=== PATIENT | male | born 1990 | race Two or more races ===

== ENCOUNTER 2023-06-12 17:43 | Inpatient (IN) | payer OTHER ==
[~2023-06-12] VITALS: Ht 175.3 cm; Wt 83.3 kg
[2023-06-12 18:34] LABS: BASOPHILS % (AUTO) 0.5 % (0.0-2.0); EOSINOPHILS % (AUTO) 1.8 % (1.0-6.0); HEMATOCRIT 47.1 % (41-53); HEMOGLOBIN 16.1 g/dL (13.5-17.5); LYMPHOCYTES % (AUTO) 34.6 % (22.0-44.0); MEAN CORPUSCULAR HEMOGLOBIN 30.2 pg (26.0-34.0); MEAN CORPUSCULAR HGB CONC 34.2 G/dL (31.0-37.0); MEAN CORPUSCULAR VOLUME 88 fL (80-100); MONOCYTES % (AUTO) 8.8 % (2.0-9.0); NEUTROPHILS # (AUTO) 6.2 K/uL (1.8-7.7); NEUTROPHILS % (AUTO) 54.3 % (40.0-70.0); PLATELET COUNT (AUTO) 261 K/uL (150-450); RED BLOOD CELL COUNT(AUTO) 5.33 MIL/uL (4.50-5.90); RED CELL DISTRIBUTION WIDTH 13.4 % (11.5-14.5); WHITE BLOOD COUNT (AUTO) 11.5 K/uL (4.5-11.0)
[2023-06-12 18:42] LABS: ANION GAP 9 mmol/L (8-16); CARBON DIOXIDE 27 mmol/L (22-29); CHLORIDE 103 mmol/L (98-107); CREATININE 0.83 mg/dL (0.60-1.30); GLOMERULAR FILTR. RATE CALC > 60 mL/min (>60); GLUCOSE,RANDOM 100 mg/dL (70-110); SODIUM SERUM 139 mmol/L (136-145); UREA NITROGEN, BLOOD 19 mg/dL (7-18)
[2023-06-12 18:48] LABS: ALANINE AMINOTRANSFERASE 29 U/L (12-78); ALBUMIN 4.1 g/dL (3.4-5.0); ALKALINE PHOSPHATASE 120 U/L (46-116); ASPARTATE AMINOTRANSFERASE 18 U/L (15-37); BILIRUBIN,TOTAL 0.4 mg/dL (0.1-1.0); TOTAL PROTEIN, SERUM 8.3 g/dL (6.4-8.2)
[2023-06-12 19:15] LABS: ALCOHOL, BLOOD (SERUM) < 3 mg/dL (0-10)
[2023-06-12 21:00] LABS: COVID AG,FIA SOURCE NASAL SWAB
[2023-06-12] MEDS: RisperiDONE 1 MG TABLET PO ONE (21:00)
[2023-06-12] MEDS: DiphenhydrAMINE HCL 25 MG CAPSULE PO ONE (21:00)
[2023-06-12] MEDS: LORazepam 2 MG TABLET PO ONE (21:00)
[2023-06-12 21:36] LABS: SARS-COV2 (COVID) ANTIGEN,FIA Negative (Negative)
[2023-06-12] MEDS ORDERED: LORazepam 2 MG TABLET PO PRN (23:45)
[2023-06-12] MEDS ORDERED: ZOLPIDEM TARTRATE 10 MG TABLET PO PRN (23:45)
[2023-06-12] MEDS ORDERED: QUEtiapine FUMARATE 100 MG TABLET PO PRN (23:45)
[2023-06-13 02:59] VITALS: BP 112/81; PULSE 66; RESP 18; TEMP 96.9; O2SAT 98
[2023-06-13] MEDS ORDERED: BACITRACIN 28 GM OINTMENT TP PRN (05:45)
[2023-06-13] MEDS ORDERED: MAG HYDROX/ALUMINUM HYD/SIMETH ES 30 ML SUSPENSION UDCUP PO PRN ×2 (05:45→10:15)
[2023-06-13] MEDS ORDERED: IBUPROFEN 600 MG TABLET PO PRN (05:45)
[2023-06-13] MEDS ORDERED: BENZOCAINE/MENTHOL LOZENGE PO PRN (05:45)
[2023-06-13] MEDS ORDERED: MAGNESIUM HYDROXIDE SUSPENSION 30 ML UDCUP PO PRN ×2 (05:45→10:15)
[2023-06-13] MEDS ORDERED: LOPERAMIDE HCL 2 MG CAPSULE PO PRN ×2 (05:45→10:15)
[2023-06-13] MEDS ORDERED: DOCUSATE SODIUM 100 MG CAPSULE PO PRN (05:45)
[2023-06-13] MEDS ORDERED: ONDANSETRON HCL 4 MG TABLET PO PRN (05:45)
[2023-06-13] MEDS ORDERED: CloNIDine HCL 0.1 MG TABLET PO PRN (05:45)
[2023-06-13] MEDS ORDERED: ALBUTEROL SULFATE HFA 90 MCG/PUFF 8 GM INHALER IH PRN (05:45)
[2023-06-13] MEDS ORDERED: ACETAMINOPHEN 325 MG TABLET PO PRN ×2 (05:45→10:15)
[2023-06-13] MEDS ORDERED: OMEPRAZOLE 20 MG CAPSULE PO PRN (05:45)
[2023-06-13] MEDS ORDERED: PETROLATUM,WHITE 28 GM JELLY TP PRN (05:45)
[2023-06-13] MEDS ORDERED: PROMETHAZINE HCL 25 MG TABLET PO PRN (10:15)
[2023-06-13] MEDS ORDERED: OLANZapine 5 MG RAPDIS TABLET PO PRN (10:15)
[2023-06-13] MEDS ORDERED: GuaiFENesin/D-METHORPHAN [SUGAR-FREE] 200-20MG/10 ML SYRUP UDCUP PO PRN (10:15)
[2023-06-13] MEDS ORDERED: HydrOXYzine PAMOATE 50 MG CAPSULE PO PRN (10:15)
[2023-06-13] MEDS ORDERED: TUBERCULIN, PURIFIED PROTEIN DERIVATIVE 5 TU/0.1 ML SYRINGE ID ONE (10:15)
[2023-06-13 11:01] VITALS: BP 119/80; PULSE 89; RESP 18; TEMP 97.5; O2SAT 98
[2023-06-13] MEDS: THIAMINE 100 MG TABLET PO SCH (18:29)
[2023-06-13] MEDS: MELATONIN 5 MG TABLET PO SCH (20:53)
[2023-06-13] MEDS: OLANZapine 5 MG RAPDIS TABLET PO SCH (20:54)
[2023-06-13] MEDS: DIVALPROEX SODIUM 500 MG ER TABLET PO SCH (20:54)
[2023-06-13 21:55] VITALS: BP 117/77; PULSE 76; RESP 18; TEMP 97.9; O2SAT 98
[2023-06-14 08:51] VITALS: BP 123/79; PULSE 77; RESP 18; TEMP 96.8; O2SAT 99
[2023-06-14 09:37] LABS: HEMOGLOBIN A1C 5.5 % (3.8-5.6)
[2023-06-14 09:58] LABS: CHOL/HDL RATIO 2.5 (4.2-7.3); FREE T4 (FREE THYROXINE) 1.24 ng/dL (0.76-1.46); THYROID STIMULATING HORMONE 0.63 uIU/mL (0.36-3.74)
[2023-06-14] MEDS: OMEGA-3/DHA/EPA/FISH OIL 1,000 MG CAPSULE PO SCH (10:02)
[2023-06-14] MEDS: NALTREXONE HCL 50 MG TABLET PO SCH (10:02)
[2023-06-14] MEDS: FOLIC ACID 1 MG TABLET PO SCH (10:02)
[2023-06-14] MEDS: MULTIVITAMINS WITH MINERALS, THERAPEUTIC TABLET PO SCH (10:02)
[2023-06-14] MEDS ORDERED: MELA5TAB40 PO (17:29)
[2023-06-14] MEDS ORDERED: DIVA500T69 PO (17:29)
[2023-06-14] MEDS ORDERED: OLAN5TAB94 PO (17:29)
[2023-06-14] MEDS: OLANZapine 10 MG RAPDIS TABLET PO SCH (20:24)
[2023-06-14 21:10] VITALS: BP 127/80; PULSE 69; RESP 18; TEMP 97.9; O2SAT 96
[2023-06-15 09:18] VITALS: BP 140/89; PULSE 84; RESP 18; TEMP 97; O2SAT 95
== END 2023-06-15 16:20 | disposition home or self-care (01) | DRG 885 ==
LOC: EMS 17:47 → 3EI 06-13 00:33
PROVIDERS: ADMIT Psychiatry & Neurology Psychiatry; ATTEND Psychiatry & Neurology Psychiatry
PROC: GZHZZZZ Group Psychotherapy (ICD-10-PCS; principal; 2023-06-13)
PROC: GZ56ZZZ Individual Psychotherapy, Supportive (ICD-10-PCS; 2023-06-13)
DX: F20.9 Schizophrenia, unspecified (principal); R45.851 Suicidal ideations; F41.9 Anxiety disorder, unspecified; G47.00 Insomnia, unspecified; F32.A Depression, unspecified; Z20.822 Contact with and (suspected) exposure to COVID-19; Z55.9 Problems related to education and literacy, unspecified; Z59.9 Problem related to housing and economic circumstances, unspecified; Z63.9 Problem related to primary support group, unspecified; Z65.3 Problems related to other legal circumstances; Z81.8 Family history of other mental and behavioral disorders; Z87.891 Personal history of nicotine dependence; Z91.199 Patient's noncompliance with other medical treatment and regimen due to unspecified reason; Z91.51 Personal history of suicidal behavior
CPT/HCPCS: 80053; 80061; 83036; 84439; 84443; 85025; 86592; 99285; G0480; Q9967

== ENCOUNTER 2024-04-26 13:53 | Emergency (ER) | payer OTHER ==
[~2024-04-26] VITALS: Ht 172.7 cm; Wt 100.0 kg
[~2024-04-26 13:53] MED LIST: DIVA500T69 PO; MELA5TAB40 PO; OLAN5TAB94 PO
[2024-04-26 14:04] VITALS: BP 111/76; PULSE 67; RESP 18; TEMP 98.9; O2SAT 98
[2024-04-26 14:44] LABS: BASOPHILS % (AUTO) 0.4 % (0.0-2.0); EOSINOPHILS % (AUTO) 1.9 % (1.0-6.0); HEMATOCRIT 46.8 % (41-53); HEMOGLOBIN 15.5 g/dL (13.5-17.5); LYMPHOCYTES # (AUTO) 3.4 K/uL (1.0-4.8); LYMPHOCYTES % (AUTO) 41.5 % (22.0-44.0); MEAN CORPUSCULAR HEMOGLOBIN 29.1 pg (26.0-34.0); MEAN CORPUSCULAR VOLUME 88 fL (80-100); MONOCYTES # (AUTO) 0.7 K/uL (0.1-1.0); MONOCYTES % (AUTO) 8.3 % (2.0-9.0); NEUTROPHILS % (AUTO) 47.9 % (40.0-70.0); PLATELET COUNT (AUTO) 238 K/uL (150-450); RED BLOOD CELL COUNT(AUTO) 5.32 MIL/uL (4.50-5.90); RED CELL DISTRIBUTION WIDTH 13.5 % (11.5-14.5); WHITE BLOOD COUNT (AUTO) 8.2 K/uL (4.5-11.0)
[2024-04-26 14:52] LABS: ANION GAP 6 mmol/L (8-16); CALCIUM, TOTAL 8.9 mg/dL (8.8-10.5); CARBON DIOXIDE 30 mmol/L (22-29); CHLORIDE 107 mmol/L (98-107); CREATININE 0.78 mg/dL (0.60-1.30); GLOMERULAR FILTR. RATE CALC > 60 mL/min (>60); GLUCOSE,RANDOM 85 mg/dL (70-110); SODIUM SERUM 143 mmol/L (136-145); UREA NITROGEN, BLOOD 8 mg/dL (7-18)
[2024-04-26 15:06] LABS: ALCOHOL, BLOOD (SERUM) < 3 mg/dL (0-10)
== END 2024-04-26 16:46 | disposition home or self-care (01) ==
LOC: EMS 13:54
DX: F20.9 Schizophrenia, unspecified (principal); I10 Essential (primary) hypertension
CPT/HCPCS: 99284; 80048; 85025; 36415; G0480; 99283

== ENCOUNTER 2024-04-29 18:27 | Inpatient (IN) | payer OTHER ==
[~2024-04-29] VITALS: Ht 172.7 cm; Wt 80.9 kg
[2024-04-29] MEDS ORDERED: HALO100A4 IM (18:36)
[2024-04-29 18:40] LABS: COVID AG,FIA SOURCE NASAL SWAB
[2024-04-29 18:56] LABS: BASOPHILS % (AUTO) 0.4 % (0.0-2.0); LYMPHOCYTES # (AUTO) 3.6 K/uL (1.0-4.8); LYMPHOCYTES % (AUTO) 37.8 % (22.0-44.0); MEAN CORPUSCULAR HEMOGLOBIN 30.1 pg (26.0-34.0); MEAN CORPUSCULAR VOLUME 89 fL (80-100); MONOCYTES % (AUTO) 10.2 % (2.0-9.0); NEUTROPHILS # (AUTO) 4.7 K/uL (1.8-7.7); NEUTROPHILS % (AUTO) 49.6 % (40.0-70.0); PLATELET COUNT (AUTO) 239 K/uL (150-450); RED CELL DISTRIBUTION WIDTH 13.7 % (11.5-14.5); WHITE BLOOD COUNT (AUTO) 9.4 K/uL (4.5-11.0)
[2024-04-29 18:56] LABS: ALCOHOL, URINE DRUG SCREEN NEGATIVE (NEGATIVE); AMPHET/METH SCREEN,URINE NEGATIVE (NEGATIVE); BARBITURATE SCREEN, URINE NEGATIVE (NEGATIVE); BENZODIAZEPINES SCREEN,URINE NEGATIVE (NEGATIVE); CANNABINOID SCREEN,URINE NEGATIVE (NEGATIVE); COCAINE SCREEN,URINE NEGATIVE (NEGATIVE); METHADONE SCREEN, URINE NEGATIVE (NEGATIVE); OPIATE SCREEN,URINE NEGATIVE (NEGATIVE); PHENCYCLIDINE SCREEN,URINE NEGATIVE (NEGATIVE)
[2024-04-29 19:01] LABS: SARS-COV2 (COVID) ANTIGEN,FIA Negative (Negative)
[2024-04-29 19:06] LABS: ANION GAP 9 mmol/L (8-16); CALCIUM, TOTAL 8.5 mg/dL (8.8-10.5); CARBON DIOXIDE 27 mmol/L (22-29); CHLORIDE 106 mmol/L (98-107); CREATININE 0.79 mg/dL (0.60-1.30); GLOMERULAR FILTR. RATE CALC > 60 mL/min (>60); GLUCOSE,RANDOM 91 mg/dL (70-110); POTASSIUM 4.1 mmol/L (3.5-5.1); SODIUM SERUM 142 mmol/L (136-145); UREA NITROGEN, BLOOD 8 mg/dL (7-18)
[2024-04-29 19:15] LABS: ALCOHOL, BLOOD (SERUM) < 3 mg/dL (0-10)
[2024-04-29] MEDS ORDERED: ChlorproMAZINE HCL 100 MG TABLET PO PRN (21:45)
[2024-04-29] MEDS: RisperiDONE 1 MG TABLET PO SCH (22:43)
[2024-04-29] MEDS: MELATONIN 5 MG TABLET PO SCH (22:43)
[2024-04-29] MEDS: ZOLPIDEM TARTRATE 10 MG TABLET PO PRN (22:45)
[2024-04-30 00:40] VITALS: BP 120/90; PULSE 69; RESP 18; TEMP 97.5; O2SAT 97
[2024-04-30] MEDS ORDERED: INFLUENZA VIRUS VACCINE TVS (6MO+) 2024-25/PF 45 MCG/0.5 ML SYRINGE IM. ONE (02:45)
[2024-04-30] MEDS: HALOPERIDOL 5 MG TABLET PO SCH (09:15)
[2024-04-30 10:20] VITALS: BP 126/8; PULSE 73; RESP 18; TEMP 97.7; O2SAT 100
[2024-04-30] MEDS: PALIPERIDONE PALMITATE 234 MG/1.5 ML SYRINGE IM ONE (11:33)
[2024-04-30] MEDS: OLANZapine 5 MG RAPDIS TABLET PO SCH (14:25)
[2024-04-30] MEDS ORDERED: TUBERCULIN, PURIFIED PROTEIN DERIVATIVE 5 TU/0.1 ML SYRINGE ID ONE (18:30)
[2024-04-30] MEDS ORDERED: MAGNESIUM HYDROXIDE SUSPENSION 30 ML UDCUP PO PRN (18:30)
[2024-04-30] MEDS ORDERED: GuaiFENesin/D-METHORPHAN [SUGAR-FREE] 200-20MG/10 ML SYRUP UDCUP PO PRN (18:30)
[2024-04-30] MEDS ORDERED: ACETAMINOPHEN 325 MG TABLET PO PRN (18:30)
[2024-04-30] MEDS ORDERED: PROMETHAZINE HCL 25 MG TABLET PO PRN (18:30)
[2024-04-30] MEDS ORDERED: LOPERAMIDE HCL 2 MG CAPSULE PO PRN (18:30)
[2024-04-30] MEDS ORDERED: MAG HYDROX/ALUMINUM HYD/SIMETH ES 30 ML SUSPENSION UDCUP PO PRN (18:30)
[2024-04-30] MEDS: PROPRANOLOL HCL 10 MG TABLET PO ONE (18:56)
[2024-04-30] MEDS: SERTRALINE HCL 50 MG TABLET PO ONE (19:00)
[2024-04-30] MEDS: TRIHEXYPHENIDYL HCL 5 MG TABLET PO ONE (19:00)
[2024-04-30] MEDS: DIVALPROEX SODIUM 500 MG ER TABLET PO SCH (20:48)
[2024-04-30] MEDS: MELATONIN 5 MG TABLET PO SCH (20:49)
[2024-04-30] MEDS ORDERED: RisperiDONE 2 MG TABLET PO SCH (21:00)
[2024-04-30 23:20] VITALS: BP 111/74; PULSE 62; RESP 18; TEMP 97.5; O2SAT 98
[2024-05-01] MEDS: PROPRANOLOL HCL 10 MG TABLET PO SCH (08:07)
[2024-05-01] MEDS: TRIHEXYPHENIDYL HCL 5 MG TABLET PO SCH (08:10)
[2024-05-01] MEDS: THIAMINE 100 MG TABLET PO SCH (08:10)
[2024-05-01] MEDS: FOLIC ACID 1 MG TABLET PO SCH (08:11)
[2024-05-01] MEDS: OMEGA-3/DHA/EPA/FISH OIL 1,000 MG CAPSULE PO SCH (08:11)
[2024-05-01] MEDS: MULTIVITAMINS WITH MINERALS, THERAPEUTIC TABLET PO SCH (08:12)
[2024-05-01] MEDS: SERTRALINE HCL 50 MG TABLET PO SCH (08:13)
[2024-05-01 08:34] LABS: HEMOGLOBIN A1C 5.1 % (3.8-5.6)
[2024-05-01 08:38] LABS: CHOL/HDL RATIO 2.7 (4.2-7.3); FREE T4 (FREE THYROXINE) 1.07 ng/dL (0.76-1.46); THYROID STIMULATING HORMONE 1.74 uIU/mL (0.36-3.74)
[2024-05-01 08:54] VITALS: BP 132/80; PULSE 71; RESP 18; TEMP 97.5; O2SAT 98
[2024-05-01] MEDS ORDERED: OMEGA-3/DHA/EPA/FISH OIL 1,000 MG CAPSULE PO SCH (09:00)
[2024-05-01 22:11] VITALS: BP 125/81; PULSE 62; RESP 18; TEMP 97.5; O2SAT 98
[2024-05-02 09:00] VITALS: BP 121/67; PULSE 80; RESP 18; TEMP 97.7; O2SAT 100
[2024-05-02] MEDS: SERTRALINE HCL 100 MG TABLET PO SCH (10:29)
[2024-05-02 20:00] VITALS: BP 131/84; PULSE 83; RESP 19; TEMP 97.2; O2SAT 98
[2024-05-02] MEDS: OLANZapine 5 MG RAPDIS TABLET PO SCH (20:42)
[2024-05-02] MEDS: LORazepam 0.5 MG TABLET PO PRN (21:12)
[2024-05-03] MEDS: HydrOXYzine PAMOATE 50 MG CAPSULE PO PRN (00:01)
[2024-05-03] MEDS: OLANZapine 5 MG RAPDIS TABLET PO PRN (00:03)
[2024-05-03 10:20] VITALS: BP 112/74; PULSE 78; RESP 18; TEMP 97.5; O2SAT 100
[2024-05-03 22:05] VITALS: RESP 18
[2024-05-04 09:35] VITALS: BP 137/86; PULSE 82; RESP 18; TEMP 97.7; O2SAT 100
[2024-05-04] MEDS: PALIPERIDONE PALMITATE 156 MG/ML SYRINGE IM ONE (13:35)
[2024-05-04 23:29] VITALS: RESP 18
[2024-05-05 09:14] VITALS: BP 133/70; PULSE 80; RESP 19; TEMP 97.6; O2SAT 97
[2024-05-05] MEDS ORDERED: HALO50VI29 IM (18:11)
[2024-05-05 23:27] VITALS: BP 144/118; PULSE 102; RESP 18; TEMP 97.7; O2SAT 95
[2024-05-06] MEDS: SERTRALINE HCL 100 MG TABLET PO SCH (08:49)
[2024-05-06] MEDS: MODAFINIL 100 MG TABLET PO SCH (08:50)
[2024-05-06 09:36] VITALS: BP 131/96; PULSE 68; RESP 17; TEMP 98.1; O2SAT 96
[2024-05-06 22:04] VITALS: BP 121/85; PULSE 91; RESP 18; TEMP 98.1; O2SAT 97
[2024-05-07] MEDS: TRIHEXYPHENIDYL HCL 2 MG TABLET PO SCH (09:34)
[2024-05-07] MEDS: MODAFINIL 100 MG TABLET PO SCH (09:35)
[2024-05-07 14:40] VITALS: BP 140/91; PULSE 84; RESP 18; TEMP 98.5; O2SAT 99
[2024-05-07 20:00] VITALS: BP 134/94; PULSE 76; RESP 18; TEMP 98.9; O2SAT 98
[2024-05-08] MEDS: BENZTROPINE MESYLATE 2 MG TABLET PO SCH (08:26)
[2024-05-08] MEDS: SERTRALINE HCL 100 MG TABLET PO SCH (08:38)
[2024-05-08] MEDS ORDERED: BENZ2TAB84 PO (09:12)
[2024-05-08] MEDS ORDERED: OMEG100033 PO (09:12)
[2024-05-08] MEDS ORDERED: SERT-440 PO (09:12)
[2024-05-08] MEDS ORDERED: PROP10TA72 PO (09:12)
[2024-05-08] MEDS ORDERED: OLAN5TAB94 PO (09:12)
[2024-05-08] MEDS ORDERED: MODA100T65 PO (09:12)
[2024-05-08 11:00] VITALS: BP 151/96; PULSE 66; RESP 18; TEMP 96.9; O2SAT 98
== END 2024-05-08 13:00 | disposition home or self-care (01) | DRG 885 ==
LOC: EMS 18:27 → 3EI 04-30 01:21
PROVIDERS: ADMIT Psychiatry & Neurology Psychiatry; ATTEND Psychiatry & Neurology Psychiatry
PROC: GZHZZZZ Group Psychotherapy (ICD-10-PCS; principal; 2024-05-01)
PROC: GZ58ZZZ Individual Psychotherapy, Cognitive-Behavioral (ICD-10-PCS; 2024-05-01)
DX: F20.0 Paranoid schizophrenia (principal); R45.851 Suicidal ideations; F41.9 Anxiety disorder, unspecified; G47.00 Insomnia, unspecified; I10 Essential (primary) hypertension; Z20.822 Contact with and (suspected) exposure to COVID-19; F94.0 Selective mutism; Z81.8 Family history of other mental and behavioral disorders; Z91.148 Patient's other noncompliance with medication regimen for other reason; Z72.0 Tobacco use
CPT/HCPCS: 80048; 80061; 80164; 80307; 83036; 84439; 84443; 85025; 99285; G0480; 36415-L1; 36415-TC; J2426; Z7502; Z7610